=== PATIENT | female | born 1980 | race Two or more races ===

== ENCOUNTER 2016-02-18 15:46 | Emergency (ER) | payer OTHER ==
[2016-02-18 16:14] VITALS: BP 124/84
--- NOTE | 2016-02-18 16:48 | UC ---
Complaint Female HPI - HPI Summary HPI Summary: lower back pain in the sacral region for the past week. Has had increased frequency abdominal bloating and tenderness. - History Of Current Complaint Chief Complaint: UCGU Stated Complaint: LOWER BACK PAIN Time Seen by Provider: 02/18/16 16:21 Hx Obtained From: Patient Hx Last Menstrual Period: APPROX 1 WK AGO. ?: No Onset/Duration: Sudden Onset, Lasting Days Timing: Constant Severity Initially: Mild Severity Currently: Mild Pain Intensity: 3 Pain Scale Used: 0-10 Numeric Character: Burning, Cramping Aggravating Factor(s): Urination Associated Signs And Symptoms: Positive: Back Pain - Risk Factors Ectopic Risk Factor: Negative Ovarian Torsion Risk Factor: Negative - Allergies/Home Medications Allergies/Adverse Reactions: Allergies Allergy/AdvReac Type Severity Reaction Status Date / Time No Known Allergies Allergy Verified 02/18/16 16:13 PMH/Surg Hx/FS Hx/Imm Hx Previously Healthy: Yes - Surgical History Surgical History: Yes Surgery Procedure, Year, and Place: APPY - Family History Known Family History: Positive: Other - no hx of respiratory disease. - Social History Alcohol Use: Occasionally Substance Use Type: None Smoking Status (MU): Never Smoked Tobacco Review of Systems Constitutional: Fatigue Skin: Negative Eyes: Negative ENT: Negative Respiratory: Negative Cardiovascular: Negative Gastrointestinal: Abdominal Pain Genitourinary: Dysuria, Frequency Motor: Negative Neurovascular: Negative Musculoskeletal: Negative Neurological: Negative Psychological: Negative All Other Systems Reviewed And Are Negative: Yes Physical Exam Triage Information Reviewed: Yes Appearance: Well-Nourished, Ill-Appearing, Pain Distress Vital Signs: Initial Vital Signs Temp 99.1 F 02/18/16 16:08 Pulse 75 02/18/16 16:08 Resp 16 02/18/16 16:08 BP 124/84 02/18/16 16:08 Pulse Ox 100 02/18/16 16:08 Vital Signs Reviewed: Yes Eye Exam: Normal Eyes: Positive: Conjunctiva Clear ENT Exam: Normal ENT: Positive: Normal ENT inspection, Pharynx normal, TMs normal Dental Exam: Normal Neck exam: Normal Neck: Positive: Supple, Nontender, No Lymphadenopathy Respiratory Exam: Normal Respiratory: Positive: Chest non-tender, Lungs clear, Normal breath sounds Cardiovascular Exam: Normal Cardiovascular: Positive: RRR, No Murmur, Pulses Normal Abdominal Exam: Normal, Other - bloated, abdomen is soft and no masses palpated , no CVA tenderness Abdomen Description: Positive: Nontender, No Organomegaly, Soft Bowel Sounds: Positive: Present Musculoskeletal Exam: Other Musculoskeletal: Positive: ROM Limited @ - in lower back extension Neurological Exam: Normal Neurological: Positive: Alert, Muscle Tone Normal Psychological Exam: Normal Skin Exam: Normal Complaint Female Dx - Course Course Of Treatment: hx obtained. exam performed. medication prescribed. UA positive. - Differential Dx/Diagnosis Differential Diagnosis/HQI/PQRI: Sexually Transmitted Disease, Ureteral Stone, Urinary Tract Infection Provider Diagnoses: low back pain. UTI Discharge - Discharge Plan Condition: Stable Disposition: HOME Prescriptions: Phenazopyridine TAB* [Pyridium TAB*] 100 mg PO TID #3 tab Sulfamethox/Trimethoprim DS* [Bactrim DS 800/160 TAB*] 1 tab PO BID #6 tab Patient Education Materials: Urinary Tract Infection in Women (ED) Referrals: Jean Oleary MD [Primary Care Provider] - Additional Instructions: Take medication as prescribed. [facility] a [employer] follow up and IUD check up.
== END 2016-02-18 17:32 | disposition home or self-care (01) ==
LOC: UCCORT 15:46
DX: M54.5 Low back pain (principal); N39.0 Urinary tract infection, site not specified; Z32.02 Encounter for pregnancy test, result negative
CPT/HCPCS: 81025; 87086; 99212; G0463

== ENCOUNTER 2017-07-15 17:29 | Emergency (ER) | payer OTHER ==
[2017-07-15 18:06] VITALS: BP 111/68
--- NOTE | 2017-07-15 18:37 | ED ---
GI/ HPI - HPI Summary HPI Summary: 36 yr old with dysuria, frequency and urgency of urination for about 2-3 weeks. No fever or chills, or back pain. No Nausea or vomiting. No other complaints. - History of Current Complaint Chief Complaint: UCGU Time Seen by Provider: 07/15/17 18:11 Stated Complaint: URINARY Hx Last Menstrual Period: 06/16/17 Pain Intensity: 0 - Allergy/Home Medications Allergies/Adverse Reactions: Allergies Allergy/AdvReac Type Severity Reaction Status Date / Time No Known Allergies Allergy Verified 07/15/17 18:06 Home Medications: Home Medications Levonorgestrel (Iud) [Mirena IUD] 20 mcg IU DAILY 07/15/17 [History Confirmed ] Naproxen [Naproxen 500 mg tab] 500 mg PO BID PRN 07/15/17 [History Confirmed ] PMH/Surg Hx/FS Hx/Imm Hx Endocrine/Hematology History: Denies: Hx Diabetes Cardiovascular History: Denies: Hx Hypertension, Hx Pacemaker/ICD History: Denies: Hx Renal Disease Sensory History: Denies: Hx Hearing Aid Psychiatric History: Denies: Hx Panic Disorder - Surgical History Surgery Procedure, Year, and Place: APPENDECTOMY Infectious Disease History: No Infectious Disease History: Denies: Traveled Outside the [place] in Last 30 Days - Family History Known Family History: Positive: Other - no hx of respiratory disease. - Social History Occupation: Employed Full-time Alcohol Use: Occasionally Substance Use Type: Reports: None Smoking Status (MU): Never Smoked Tobacco Review of Systems Constitutional: Negative Positive: dysuria, frequency, urgency All Other Systems Reviewed And Are Negative: Yes Physical Exam Triage Information Reviewed: Yes Vital Signs On Initial Exam: Initial Vitals Temp Pulse Resp BP Pulse Ox 97.1 F 72 16 111/68 100 07/15/17 18:00 07/15/17 18:00 07/15/17 18:00 07/15/17 18:00 07/15/17 18:00 Vital Signs Reviewed: Yes Appearance: Positive: Well-Appearing, No Pain Distress Skin: Positive: Warm, Skin Color Reflects Adequate Perfusion Head/Face: Positive: Normal Head/Face Inspection Eyes: Positive: EOMI ENT: Positive: Normal ENT inspection Neck: Positive: Supple, Nontender Respiratory/Lung Sounds: Positive: Clear to Auscultation, Breath Sounds Present Cardiovascular: Positive: RRR. Negative: Murmur Abdomen Description: Positive: Nontender Musculoskeletal: Positive: Strength/ROM Intact Neurological: Positive: Sensory/Motor Intact, Alert, Oriented to Person Place, Time, CN Intact II-III Psychiatric: Positive: Normal Diagnostics - Vital Signs Vital Signs Temp Pulse Resp BP Pulse Ox 07/15/17 18:00 97.1 F 72 16 111/68 100 - Laboratory Lab Results: Lab Results 07/15/17 Range/Units 18:11 POC Urine Color Yellow POC Urine Clarity Clear POC Urine pH 5.5 (5-9) POC Ur Specif [place] 1.025 (1.010-1.030) POC Urine Protein Negative (Negative) POC Ur Glucose (UA) Negative (Negative) POC Urine Ketones Negative (Negative) POC Urine Blood Negative (Negative) POC Urine Nitrite Negative (Negative) POC Urine Bilirubin Negative (Negative) POC Urine Urobilinogen 0.2 (Negative) POC U Leukocyte Esteras Trace A (Negative) Lab Statement: Any lab studies that have been ordered have been reviewed, and results considered in the medical decision making process. GIGU Course/Dx - Course Course Of Treatment: 36 yr old with UTI. Rx bactrim DS and dc home. - Diagnoses Provider Diagnoses: UTI (urinary tract infection) Discharge - Sign-Out/Discharge Documenting (check all that apply): Discharge/Admit/Transfer - Discharge Plan Condition: Good Disposition: HOME Prescriptions: Sulfamethox/Trimethoprim DS* [Bactrim DS 800/160 TAB*] 1 tab PO BID #10 tab Patient Education Materials: Urinary Tract Infection in Women (DC) Referrals: Jean Oleary MD [Primary Care Provider] - 2 Days - Billing Disposition and Condition Condition: GOOD Disposition: HOME
== END 2017-07-15 18:39 | disposition home or self-care (01) ==
LOC: UCCORT 17:29
DX: N39.0 Urinary tract infection, site not specified (principal)
CPT/HCPCS: 81003; 87086; 99212; G0463

== ENCOUNTER 2018-04-16 17:52 | Emergency (ER) | payer OTHER ==
[2018-04-16 18:19] VITALS: BP 126/94
--- NOTE | 2018-04-16 20:10 | UC ---
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 Each time it returns condition seems worse." -she washes her hands frequently with hot water. no dc. no fevers. no streaks. flares and gets worse. works as [employer] and is confident that her 1 pt does not have scabies. - History of Current Complaint Chief Complaint: UCSkin Time Seen by Provider: 04/16/18 19:56 Stated Complaint: SKIN COMPLAINT Hx Last Menstrual Period: 04/05/18 Pain Intensity: 0 - Allergy/Home Medications Allergies/Adverse Reactions: Allergies Allergy/AdvReac Type Severity Reaction Status Date / Time No Known Allergies Allergy Verified 04/16/18 18:13 Home Medications: Home Medications EPINEPHrine [Epipen 2-Yifan] 0.3 mg IM ONCE PRN 04/16/18 [History Confirmed ] PMH/Surg Hx/FS Hx/Imm Hx Previously Healthy: Yes - Surgical History Surgical History: Yes Surgery Procedure, Year, and Place: APPENDECTOMY - Family History Known Family History: Positive: Other - no hx of respiratory disease. - Social History Alcohol Use: Rare Substance Use Type: None Smoking Status (MU): Never Smoked Tobacco Review of Systems All Other Systems Reviewed And Are Negative: Yes Constitutional: Positive: Negative Skin: Positive: Rash Eyes: Positive: Negative ENT: Positive: Negative Respiratory: Positive: Negative Cardiovascular: Positive: Negative Gastrointestinal: Positive: Negative Genitourinary: Positive: Negative Motor: Positive: Negative Neurovascular: Positive: Negative Musculoskeletal: Positive: Negative Neurological: Positive: Negative Psychological: Positive: Negative Is Patient Immunocompromised?: No Physical Exam Triage Information Reviewed: Yes Appearance: Well-Appearing, No Pain Distress, Well-Nourished Vital Signs: Initial Vital Signs Temp 98.4 F 04/16/18 18:14 Pulse 68 04/16/18 18:14 Resp 16 04/16/18 18:14 BP 126/94 04/16/18 18:14 Pulse Ox 100 04/16/18 18:14 Vital Signs Reviewed: Yes Neck exam: Normal Respiratory Exam: Normal Respiratory: Positive: Lungs clear Cardiovascular Exam: Normal Cardiovascular: Positive: RRR Abdominal Exam: Normal Musculoskeletal Exam: Normal Neurological Exam: Normal Psychological Exam: Normal Skin: Positive: Rashes - b/l extensor hands w/ mild non-blanching excoriated dry skin. no bleeding. no streaks no dc. cool to touch. CR brisk. FROM Course/Dx - Course Course Of Treatment: unlikely to be scabies. -treat w/ steroid cream for acute flare but maintainw/ aquaphor and avoiding hot water and frequent hand washing. - Differential Diagnoses - Skin Complaint Differential Diagnoses: Eczema, Scabies - Diagnoses Provider Diagnosis: Eczema Discharge - Sign-Out/Discharge Documenting (check all that apply): Patient Departure All imaging exams completed and their final reports reviewed: No Studies - Discharge Plan Condition: Stable Disposition: HOME Prescriptions: Hydrocortisone Valerate 1 gm TOPICAL BID 14 Days #45 oint...g. Patient Education Materials: Eczema (ED) Referrals: Jean Oleary MD [Primary Care Provider] - Additional Instructions: Avoid hot showers and frequent had washing in hot water. Use gloves when washing dishes. Make sure to keep your hands well moisturized with applying aquaphor frequently. The steroid cream will help the current flare of your symptoms. You need to continue the measures above to avoid re-exacerbation. - Billing Disposition and Condition Condition: STABLE Disposition: Home
== END 2018-04-16 20:29 | disposition home or self-care (01) ==
LOC: UCCORT 17:52
DX: L30.9 Dermatitis, unspecified (principal)
CPT/HCPCS: 99212; G0463